=== PATIENT | female | born 1985 | race Caucasian/White ===

== ENCOUNTER 2019-12-07 15:24 | Emergency (ER) | payer MEDICAID ==
[~2019-12-07] VITALS: Ht 160 cm; Wt 89.0 kg
[2019-12-07 20:50] VITALS: BP 128/80
== END 2019-12-07 21:24 | disposition home or self-care (01) ==
LOC: ER 15:24
DX: R06.4 Hyperventilation (principal); R07.89 Other chest pain
CPT/HCPCS: 81025; 99283